=== PATIENT | female | born 1980 | race Caucasian/White ===

== ENCOUNTER 2016-04-23 18:15 | Emergency (ER) | payer BC ==
[2016-04-23 18:23] VITALS: BP 128/79
[2016-04-23 18:42] LABS: Hematocrit 41.2 % (37.0-47.0); Hemoglobin 13.5 gm/dL (12.5-16.0); Mean Cell Volume 82.2 fl (78-100); Mean Corpuscular Hemoglobin 26.9 pg (27-31); Mean Corpuscular Hgb Conc 32.8 g/dl (32-36); Mean Platelet Volume 10.1 fl (6.0-9.5); Neutrophil # 7.1 K/mm3 (1.3-6.0); Neutrophil % 76.9 % (42-75.0); Platelet Count 281 K/mm3 (150-450); Red Blood Count 5.01 M/mm3 (4.2-5.4); Red Cell Distribution Width 14.5 % (11.5-14.0); White Blood Count 9.2 K/mm3 (4.0-10.5)
[2016-04-23 18:46] LABS: Urine Bilirubin Negative (NEGATIVE); Urine Blood Negative /ul (NEGATIVE); Urine Ketone Negative (NEGATIVE); Urine Nitrite Negative (NEGATIVE); Urine Protein Negative (NEGATIVE); Urine Urobilinogen Normal (NORMAL)
[2016-04-23 18:54] LABS: Urine Appearance Clear; Urine Bacteria 3+; Urine Color Yellow; Urine RBC 0-5 /hpf (0-5)
[2016-04-23 18:56] LABS: Albumin * 3.9 gm/dl (3.4-5.0); Anion Gap 15.3 mmol/L (6.8-13.8); BUN/Creatinine Ratio 10.3 (9.0-21.6); Bilirubin, Total 0.4 mg/dL (0.0-1.1); Ca. Corrected For Albumin 8.3 mg/dL (8.4-10.2); Calcium * 8.5 mg/dL (7.9-10.9); Carbon Dioxide 24.3 mmol/L (24-32.6); Potassium 3.6 mmol/L (3.4-4.6); Total Protein 7.3 gm/dL (6.2-8.2)
--- NOTE | 2016-04-23 19:24 | ERNOTE ---
Abdominal HPI - General Chief Complaint: Abdominal Pain Time Seen by Provider: 04/23/16 19:08 Source: patient Exam Limitations: no limitations - Immun/Allergies/Home Medications Immunizatons: IMMUNIZATION HX Immunizations Up to Date Yes History of Influenza Vaccine No Hx Pneumococcal Vaccination No Allergies/Adverse Reactions: Allergies shellfish derived Allergy (Verified 04/23/16 18:23) Home Medications: HOME MEDICATIONS Levothyroxine Sodium [Synthroid] 150 mcg PO DAILY #30 tab 02/15/15 [Last Taken Unknown] Dicyclomine HCl [Bentyl] 20 mg PO QID PRN #20 tab 04/23/16 [Last Taken Unknown] - History of Present Illness Narrative: Patient started with burning/cramping periumbilical pain that has been waxing and waning every since, at max the pain goes to 8/10 and causes nausea and diaphoresis, currently the pain is at 5/10, nausea, no vomiting, large soft BM around 17:00 Date (Duration): 04/23/16 Time (Timing): 10:00 Timing: constant Quality: severe, cramping Activities at Onset: none Modifying Factors - (Improves): Present: other - walking , curling up Modifying Factors - (Worsens): Absent: breathing, coughing, eating Prior Abdominal Problems: Present: none Prior Treatment: Absent: recently seen, currently on antibiotics Review of Systems - Review of Systems Constitutional: Present: chills. Absent: recent illness, fever ENT: Absent: nose congestion, sore throat Respiratory: Absent: shortness of breath, cough Cardiology: Absent: chest pain Gastrointestinal/Abdominal: Present: See HPI, nausea. Absent: vomiting, diarrhea Genitourinary: Present: no symptoms reported. Absent: frequency, dysuria Musculoskeletal: Absent: back pain Neurological: Absent: headache - Patient's Past Medical History Patient History - Medical: Hypothyroidism Patient History - Cardiac/Respiratory: No pertinent hx Patient History - Cancer: No Hx of Cancer Patient History - Surgical Procedures: T & A Patient History - Other: None LMP (Calendar): 04/05/16 - Social History Living Situations: home Abuse History: No History of abuse Psych History: No pertinent hx Smoking Status: Never smoker Alcohol Use: none Drug Use: none - Immunizations Immunizations Up to Date: Yes Hx Pneumococcal Vaccination: No History of Influenza Vaccine: No Physical Exam - Physical Exam General Appearance: Present: wd/wn, alert, no apparent distress, anxious Ears, Nose, Throat: Present: normal pharynx Respiratory: Present: no respiratory distress, normal breath sounds, no accessory muscle use, lungs clear Cardiovascular/Chest: Present: regular rate, rhythm, no murmur Gastrointestinal/Abdominal: Present: normal bowel sounds, nondistended, soft, tenderness - periumbilical. Absent: guarding, rebound, McBurney sign Extremity Exam: Present: no edema Neurological Exam: Present: alert, oriented, normal mood/affect Skin Exam: Present: normal color, warm/dry ED Progress - Results and Orders Patient's Lab Results:: I have reviewed the patient's lab results. - Vital Signs Patient's Vital Signs:: I have reviewed the patient's vital signs. Vital Signs: Vital Signs 04/23/16 18:18 Temperature 36.4 C L Pulse Rate 60 Respiratory 18 Rate Blood Pressure 128/79 O2 Sat by Pulse 100 Oximetry - X-Ray X-Ray #1 X-Ray: abdomen - non specific bowel gas pattern Interpretation: Interp. by me - Progress/Reassessment Chief Complaint: Abdominal Pain Progress Note-Subjective: 04/23/16 19:42 discussed labs and Xray with patient, patient comfortable, will try bentyl explained warning signs and symptoms Departure - Departure Clinical Impression: Abdominal pain Qualifiers: Abdominal location: periumbilical Qualified Code(s): R10.33 - Periumbilical pain Disposition: Home self-care Condition: Good Instructions: Abdominal Pain, Adult, [id number] Additional Instructions: stay on a liquid diet till your pain gets better if you start to vomit or the pain moves to the right lower side return to the ER Referrals: Eric Ramires DO [Primary Care Provider] - Prescriptions: Dicyclomine HCl [Bentyl] 20 mg PO QID PRN #20 tab PRN Reason: Pain
[2016-04-23] MEDS ORDERED: DICYCLOMINE HCL 20 MG TABLET PO ONE (19:40)
[2016-04-23] MEDS ORDERED: DICYCLOMINE HCL 20 MG TABLET ONE (19:43)
== END 2016-04-23 19:45 | disposition home or self-care (01) ==
LOC: ER 18:15
DX: R10.33 Periumbilical pain (principal); E03.9 Hypothyroidism, unspecified